=== PATIENT | male | born 1960 | race Caucasian/White ===

== ENCOUNTER 2017-12-27 11:17 | Outpatient (REF) | payer BC, SELFPAY ==
--- NOTE | 2017-12-27 10:45 | SKI_PTH ---
PATIENT: Sherman Garcias LOC: [facility] U#:[id number] AGE/SX: 57/M ROOM: RE12/27/[address]: Fernie Whalen : 1960 BED: DIS: 12/27/2017 SPEC #: [id number] RECD: 12/27/17 12:27 STATUS: JESENIA REQueenie #: [id number] LILLY: 12/27/17 10:[address]: Fernie Whalen DEPT: Surgical Specimen RECD BY: Kalyani Doyle Tissues: 1 - SKIN BIOPSY(SHAVE/PUNCH) Procedures: SKIN LEVEL 4 Comments: [id number]
== END 2017-12-27 11:37 ==
LOC: NCHCN 11:17
PROVIDERS: PCP Family Medicine; Visit Provider Family Medicine
DX: L82.1 Other seborrheic keratosis (principal)
CPT/HCPCS: 88305

== ENCOUNTER 2018-03-22 09:47 | Outpatient (CLI) | payer BC, SELFPAY ==
--- NOTE | 2018-03-22 09:39 | DI.RAD_ITS ---
SYMPTOMS/DIAGNOSIS: PAIN RIGHT THUMB: No acute fracture or dislocation is seen. Mild hypertrophic changes are seen at the first carpal metacarpal joint. No radiopaque foreign bodies are seen in the soft tissues. IMPRESSION: Mild degenerative changes seen at the first carpal metacarpal joint.
== END 2018-03-22 10:07 ==
PROVIDERS: PCP Family Medicine; Visit Provider Physician Assistant Surgical
DX: M79.644 Pain in right finger(s) (principal); M18.11 Unilateral primary osteoarthritis of first carpometacarpal joint, right hand
CPT/HCPCS: 73140

== ENCOUNTER 2018-10-16 08:53 | Outpatient (REF) | payer BC, SELFPAY ==
[2018-10-16 13:38] LABS: HCT 45.7 % (40.0-50.0); HGB 15.8 g/dL (13.5-17.5); Mean Corp. HGB Concentration 34.6 g/dL (32.0-36.0); Mean Corpuscular Hemoglobin 31.5 pg (27.0-33.0); Mean Platelet Volume 10.7 fL (8.0-11.0); Platelet Count 212 x1000/uL (130-400); RBC 5.02 m/cumm (4.50-6.00); RBC Distribution Width 13.3 % (11.8-14.1); White Blood Cell Count 8.11 k/cumm (4.4-10.8)
[2018-10-16 13:49] LABS: ALT 30 U/L (12-78); AST 18 U/L (15-37); Alkaline Phosphatase 70 U/L (46-116); BUN 17 mg/dL (7-18); Bilirubin, Total 0.7 mg/dL (0.2-1.0); CREATININE 1.06 mg/dL (0.70-1.30); Calcium 9.1 mg/dL (8.5-10.1); Chloride 107 mmol/L (98-107); Glucose 113 mg/dL (70-100); Potassium 4.3 mmol/L (3.5-5.1); Sodium 142 mmol/L (136-145); Total Protein 7.3 g/dL (6.4-8.2)
== END 2018-10-16 09:13 ==
LOC: NCHCN 08:53
PROVIDERS: PCP Family Medicine; Visit Provider Family Medicine
DX: I10 Essential (primary) hypertension (principal); R73.09 Other abnormal glucose; K76.0 Fatty (change of) liver, not elsewhere classified
CPT/HCPCS: 80053; 85027

== ENCOUNTER 2019-01-24 15:23 | Outpatient (CLI) | payer BC, SELFPAY ==
[2019-01-24 15:44] LABS: Abs Immature Grans 0.02 k/cumm (0.0-0.09); Absolute Basophil Count 0.04 k/cumm (0.0-0.2); Absolute Eosinophil Count 0.33 k/cumm (0.0-0.7); Absolute Lymphocyte Count 2.73 k/cumm (1.2-3.4); Absolute Monocyte Count 0.86 k/cumm (0.11-0.7); Absolute Neutrophil Count 4.29 k/cumm (1.2-6.7); Basophils % 0.5; HGB 15.8 g/dL (13.5-17.5); Immature Grans % 0.2; Mean Corp. HGB Concentration 34.3 g/dL (32.0-36.0); Mean Corpuscular Hemoglobin 31.3 pg (27.0-33.0); Mean Corpuscular Volume 91.3 fL (80-95); Monocytes % 10.4; Neutrophils % 51.9; Platelet Count 233 x1000/uL (130-400); RBC 5.04 m/cumm (4.50-6.00); RBC Distribution Width 12.9 % (11.8-14.1); White Blood Cell Count 8.27 k/cumm (4.4-10.8)
[2019-01-24 16:21] LABS: C-Reactive Protein 0.21 mg/dL (0.0-0.3)
[2019-01-24 16:46] LABS: ESR 9 mm/hr (1-20)
[2019-01-26 10:28] LABS: Rheumatoid Factor 9 IU/mL (<12.5)
[2019-01-26 11:01] LABS: Lyme Ab w Rflx to Lyme Confirm Negative
[2019-01-26 16:58] LABS: ANA Interpretation Negative (NEGAT)
== END 2019-01-24 15:43 ==
PROVIDERS: PCP Family Medicine; Visit Provider Orthopaedic Surgery
DX: M25.50 Pain in unspecified joint (principal); M18.11 Unilateral primary osteoarthritis of first carpometacarpal joint, right hand
CPT/HCPCS: 36415; 85652; 85025; 86038; 86140; 86431; 86618

== ENCOUNTER 2019-10-22 13:39 | Outpatient (REF) | payer BC, SELFPAY ==
[2019-10-25 08:24] LABS: SARS-CoV-2 RNA Undetected (Undetected)
== END 2019-10-22 13:59 ==
LOC: NCHCN 13:39
PROVIDERS: PCP Family Medicine; Visit Provider Nurse Practitioner Family
DX: Z20.828 Contact with and (suspected) exposure to other viral communicable diseases (principal)
CPT/HCPCS: U0003

== ENCOUNTER 2019-12-27 18:31 | Outpatient (REF) | payer BC, SELFPAY | END 2019-12-27 18:51 | LOC: NCHCN 18:31 | PROVIDERS: PCP Family Medicine; Visit Provider Family Medicine | DX: N39.0 Urinary tract infection, site not specified (principal) | CPT/HCPCS: 87077; 87086; 87186 ==

== ENCOUNTER 2020-01-02 09:32 | Outpatient (CLI) | payer BC, SELFPAY ==
--- NOTE | 2020-01-02 09:00 | DI.RAD_ITS ---
EXAM: XR SHOULDER LT COMPLETE 2+V CLINICAL HISTORY: pain. TECHNIQUE: 2D digital imaging was performed. COMPARISON: No exams were available for comparison FINDINGS: BONES: No acute fracture is present. No bony destructive lesion is seen. JOINTS: No dislocation present. Mild degenerative changes are seen at the acromioclavicular joint. T he glenohumeral joint appears unremarkable. SOFT TISSUE: Normal. IMPRESSION: Mild degenerative changes of the left AC joint. DATA REPOSITORY: RADIATION DOSE DELIVERED:
== END 2020-01-02 09:52 ==
PROVIDERS: PCP Family Medicine; Referring Provider Family Medicine; Visit Provider Orthopaedic Surgery
DX: M19.012 Primary osteoarthritis, left shoulder (principal)
CPT/HCPCS: 73030

== ENCOUNTER 2020-01-07 16:33 | Outpatient (REF) | payer BC, SELFPAY ==
[2020-01-07 19:28] LABS: HCT 46.9 % (40.0-50.0); MCH 30.8 pg (27.0-33.0); MCHC 34.1 % (32.0-36.0); MCV 90.2 fL (80-95); MPV 10.5 fL (8.0-11.0); Platelet Count 244 10^3/uL (130-400); RDW 12.3 % (11.8-14.1); RDW-SD 40.7 fL
[2020-01-07 20:13] LABS: ALT 44 U/L (16-63); AST 30 U/L (15-37); Albumin 4.2 g/dL (3.4-5.0); Alkaline Phosphatase 70 U/L (46-116); Anion Gap 11.4 mmol/L (3-11); BUN 19 mg/dL (7-18); Bilirubin, Total 0.5 mg/dL (0.2-1.0); CO2 23.6 mmol/L (21.0-32.0); CREATININE 1.05 mg/dL (0.70-1.30); Calcium 9.1 mg/dL (8.5-10.1); Chloride 103 mmol/L (98-107); Glucose 93 mg/dL (74-106); Potassium 4.1 mmol/L (3.5-5.1); Sodium 138 mmol/L (136-145); TSH (W/Ref FT4) 1.35 uIU/mL (0.36-3.74); Total Protein 7.5 g/dL (6.4-8.2); Vitamin B12 516 pg/mL (193-986)
== END 2020-01-07 16:53 ==
LOC: NCHCN 16:33
PROVIDERS: PCP Family Medicine; Visit Provider Family Medicine
DX: K76.0 Fatty (change of) liver, not elsewhere classified (principal); R41.3 Other amnesia
CPT/HCPCS: 80053; 85027; 82607; 84443

== ENCOUNTER 2020-01-14 00:39 | Outpatient (CLI) | payer BC, SELFPAY ==
--- NOTE | 2020-01-14 06:30 | DI.MRI_ITS ---
EXAM: MR UPPER JOINT LT WO CLINICAL HISTORY: LT SHOULDER PAIN, LT ROTATOR CUFF TEAR,M75.102,M25.512 TECHNIQUE: COMPARISON: CR XR SHOULDER LT COMPLETE 2+V from 01/02/2020 FINDINGS: MR examination of the shoulder was performed according to the usual protocol. There is a small shoulder joint effusion. There are areas of abnormal bony signal in the acromion and clavicle adjacent to the AC joint with mo derate hypertrophic changes and minimal cyst formation of the bones at the AC joint. Small subchondral cysts also noted in the greater tuberosity of the humerus.. There is apparent discontinuity of the anterior superior aspect of the glenoid labrum suggesting a te ar. There are associated areas of abnormal signal and apparent tearing in the rotator interval, whic h may involve both superior glenohumeral ligament and coracohumeral ligament. However the biceps ten don appears normally positioned with no evidence bicipital tendinosis or tear. Rotator cuff: Minimal linear intrasubstance partial thickness tearing of the distal subscapularis ten don noted. Moderate subscapularis tendinosis with abnormal signal and thickening of the tendon. No full thickness tear or retracted tear. Supraspinatus tendinosis, with thickened abnormal signal of mid to distal portion of the tendon, ques tion minimal partial thickness inferior cyst surface tearing at and near the humeral attachment. No full-thickness tear. No retracted tear. Infraspinatus and teres minor are unremarkable appearance with no significant tendinosis or tear. IMPRESSION: Apparent rotator interval tear as described above, there may be an associated anterior superior gleno id labral tear. Tendinosis and minimal partial thickness tearing of supraspinatus and subscapularis tendons as descri bed above. No full thickness tear or retracted tear. RADIATION DOSE DELIVERED: LINK-TO-SR Total DLP
== END 2020-01-14 00:59 ==
PROVIDERS: PCP Family Medicine; Visit Provider Orthopaedic Surgery
DX: M25.512 Pain in left shoulder (principal); M75.102 Unspecified rotator cuff tear or rupture of left shoulder, not specified as traumatic; M25.412 Effusion, left shoulder
CPT/HCPCS: 73221

== ENCOUNTER 2020-01-21 06:18 | Day surgery (SDC) | payer BC, SELFPAY ==
[2020-01-21 06:26] VITALS: BP 122/78; PULSE 73; RESP 16; TEMP 36.5; O2SAT 95
[2020-01-21] MEDS: Lactated Ringers 1,000 ML 80 ML IV ×2 (06:57→08:18)
[2020-01-21] MEDS: Normal Saline Flush 10 ML SYR IV (07:14)
--- NOTE | 2020-01-21 07:48 | W.PREOPHP ---
Date of service: 01/21/20 Time of Service: 07:48 Assessment and Plan Assessment and plan (1) Right carpal tunnel syndrome: Status: Acute Assessment and plan: endoscopic carpal tunnel release on the right under IV regional anesthesia. History of Present Illness History of Present Illness Chief Complaint: Right carpal Tunnel syndrome Narrative: Patient with (+) nerve conduction studies for right carpal tunnel syndrome. He was seen by Dr. Mason and they have decided to proceed with endoscopic carpal tunnel release on right. Review of Systems Constitutional Constitutional: Denies chills, Denies fever(s), Denies frequent falls, Denies night sweats and Denies weight loss ENT Ears, Nose, Mouth, and Throat: Denies abnormal hearing, Denies dysphagia, Denies hearing loss, Denies nasal congestion and Denies neck pain Cardiovascular Cardiovascular: Denies chest pain at rest, Denies chest pain with activity, Denies syncope, Denies dyspnea, Denies dyspnea on exertion and Denies paroxysmal nocturnal dyspnea Respiratory Respiratory: Denies cough, Denies dyspnea and Denies dyspnea on exertion Gastrointestinal Gastrointestinal: Denies dysphagia Musculoskeletal Musculoskeletal: Denies neck pain Neurologic Neurologic: Denies abnormal hearing, Denies syncope and Denies frequent falls [facility] Medical History Anxiety and depression Arthropathy of lumbar facet joint Bilateral primary osteoarthritis of hip Cubital tunnel syndrome, bilateral Erectile dysfunction Fatty liver Gastritis History of nephrolithiasis Hyperlipidemia Hypertension Lower urinary tract symptoms Lumbar spinal stenosis ELINOR (obstructive sleep apnea) Osteoarthritis of right thumb Prediabetes Right carpal tunnel syndrome Shoulder pain Tinea cruris Tinnitus TMJ (dislocation of temporomandibular joint) Ulnar neuropathy Voice disturbance Surgical History Deformity, clavicle clavicle resection H/O inguinal hernia repair H/O lithotripsy x2 1979 and 2009 History of nasal surgery septoplasty and turbinate repair Social History Smoking/Tobacco Use Status: Former Tobacco Use Alcohol Intake: current Alcohol Intake frequency: 0-2 drinks per day Alcohol type: wine Drug use: Never Substance use type: does not use Household members: spouse Number of Children: 1 Current gender identity: male What is your relationship status?: Panel score (0-1 are the most socially isolated patients): 1 What type of physical activity do you participate in: walking, regular exercise and additional Details: Shoulder PT exercises Do you feel safe at home: Yes Do you feel safe in your relationship?: Yes Meds Home Medications and Allergies Home Medications Medication Instructions Recorded Confirmed Type sildenafil 25 mg tablet 25 mg PO DAILY PRN 03/22/18 01/21/20 History atorvastatin 40 mg PO HS 03/19/19 01/21/20 History ketoconazole 1 applic TOPICAL HS 03/19/19 01/18/20 History lisinopril 20 mg PO DAILY 03/19/19 01/21/20 History aspirin 81 mg tablet,delayed 81 mg PO Q OTHER DAY tab 03/20/19 01/21/20 History release meloxicam 15 mg tablet 15 mg PO DAILY PRN 30 Days #30 tab 03/20/19 01/21/20 Rx Allergies Allergy/AdvReac Type Severity Reaction Status Date / Time Sulfa (Sulfonamide Allergy Intermediate Hives Verified 01/21/20 06:29 Antibiotics) Exam Const General: cooperative, healthy appearing and comfortable Orientation: alert and oriented x3 Resp Effort & Inspection: normal respiratory effort, no audible wheezes and no cough Auscultation: clear to auscultation bilaterally Cardio Jugular venous pressure: no JVD Rate: regular rate Rhythm: regular rhythm Heart Sounds: S1 normal, S2 normal and no murmurs Results Last Vital Signs Temp 36.5 C 01/21/20 06:26 Pulse 73 01/21/20 06:26 Resp 16 01/21/20 06:26 BP 122/78 01/21/20 06:26 Pulse Ox 95 01/21/20 06:26
--- NOTE | 2020-01-21 08:33 | W.PM.DSUDISC ---
Discharge Plan Disposition Patient Disposition: HOME Condition: Good Discharge Details Reason For Visit: R ECTR Attending Provider: Rick Mason Primary Care Provider: Fernie Whalen Home Meds and New Rx's Prescriptions: New hydrocodone-acetaminophen 5-325 mg tablet 1 tab PO Q6H PRN (Reason: pain) Qty: 7 RF: 0 No Action meloxicam 15 mg tablet 15 mg PO DAILY PRN (Reason: joint pain) 30 Days Qty: 30 RF: 5 sildenafil [Viagra] 25 mg tablet 25 mg PO DAILY PRNRF: 0 atorvastatin 40 mg Tablet 40 mg PO HS RF: 0 lisinopril 20 mg Tablet 20 mg PO DAILY RF: 0 ketoconazole 2 % Cream 1 applic TOPICAL HS RF: 0 aspirin [Aspir-Low] 81 mg tablet,delayed release (DR/EC) 81 mg PO Q OTHER DAY RF: 0 Discharge Instructions Additional Instructions: Elevate R hand above heart level as much as possible overnite tonite. Wiggle fingers R hand 10 times/hour when awake to prevent swelling. Remove splint and dressings and begin to more R wrist after 48 hours. May shower or bathe and get incision wet after you remove the dressings. Leave incision uncovered when it is dry and sealed. May use R hand as much as your discomfort allows. Follow up with in 2 weeks. Take tylenol for mild pain. Take hydrocodone for breakthru pain, if needed. Referrals: Rick Mason MD [ [facility] STAFF PHYSICIAN] - (f/u in 2 weeks.) Equipment/Supplies: Splint Activity:: Activity as Tolerated Remove Dressings/Wound Care:: 48 hours Shower/Bathe:: 48 hours Diet:: As Tolerated Discharge Orders Discharge Orders: Discharge Order (Routine); Ordered 01/21/20 Ordered By: Rick Mason DS: Diagnosis Discharge Diagnosis (1) Right carpal tunnel syndrome: Status: Acute
[2020-01-21 09:04] VITALS: BP 141/94; PULSE 63; RESP 16; TEMP 36.5; O2SAT 96
--- NOTE | 2020-01-22 17:34 | W.PM.OP ---
Date of service: 01/21/20 Time of Service: 08:00 Operative Note Operative Note DATE OF PROCEDURE: 01/21/20 PRE-OP DIAGNOSIS: Right carpal tunnel syndrome POST-OP DIAGNOSIS: same PROCEDURE: Endoscopic carpal tunnel release right SURGEON: Rick Mason ANESTHESIA: regional PATHOLOGY: none sent TOURNIQUET TIME: 22 COMPLICATIONS: None Patient was transported to: PACU Patient's condition: stable Indications: This 59-year-old white male with longstanding carpal tunnel syndrome on the right. Diagnosis was confirmed with nerve conduction studies. Carpal tunnel release was recommended to alleviate his symptoms on a permanent basis. Patient wished to undergo the endoscopic technique of carpal tunnel release. Risk and complication of the procedure were discussed with the patient preop. Procedure Description: Patient was taken the operating room on 01/21/20. He was placed supine on the operating table and an IV regional anesthetic was administered to the right upper extremity. Once good anesthesia was obtained the right hand wrist and forearm were prepped and draped free in the usual sterile fashion. Incision was made in line with the proximal flexion crease of the right wrist beginning of the flexor carpi radialis and extending to the flexor carpi ulnaris tendon. The incision was carried down through the skin and subcutaneous tissue to the fascia. Subcutaneous veins were cauterized. A distally based fascial flap was fashioned to gain access to the carpal canal. Patient was noted to have an abnormal distal muscle belly extending to the proximal end of the carpal canal. Synovial reflector was then used to reflect all soft tissue from the undersurface of the volar carpal ligament. A series of obturators were inserted to gain room for the endoscope. TheAgee endoscope blade device was then inserted into the carpal canal and advanced until the distal edge of the volar carpal ligament was clearly visualized. Care was taken to position the endoscope against the hook of the hamate. Trigger was depressed elevating the the blade. The blade was then brought out proximally through the incision transecting the volar carpal ligament. Endoscope was replaced in the carpal canal and the median nerve was visualized falling into the gap where the volar carpal ligament was transected. The wounds irrigated with saline solution. The wound margins were infiltrated 0.5% Marcaine with epinephrine solution. A median nerve block was performed 0.5% Marcaine with epinephrine solution. Skin edges were approximated with 2 horizontal mattress sutures of 4-0 nylon suture material. Wounds dressed with Xeroform gauze sterile gauze 4 x 4's were applied wrapped with a 4 inch Kerlix and then wrapped with a 3 inch Caesar bandage. A commercial cock-up wrist plate was applied. Patient is IV regional anesthesia was reversed complications and he was discharged to the recovery room in good condition. Patient was discharged home from day surgery unit when fully recovered from his IV regional anesthesia. He was given instructions to elevate his right hand above heart level as much as possible overnight. He is encouraged to move his fingers 10 times an hour while awake to prevent swelling. He is to keep his dressings and splint dry and intact for 48 hours. After 48 hours he can remove his dressings and splint and begin to move his right wrist. After removing his dressings he may shower and get incision wet. He can leave his incision uncovered when is dry and sealed. He may use his right hand is much as discomfort allows. He will take Tylenol for mild pain. He is given a prescription of hydrocodone with APAP 08/11/2024, 1 every 6 hours as needed for breakthrough pain. He will follow-up with Dr. Mason in 2 weeks.
== END 2020-01-21 09:30 | disposition home or self-care (01) ==
PROVIDERS: PCP Family Medicine; Visit Provider Orthopaedic Surgery
PROC: 01N54ZZ Release Median Nerve, Percutaneous Endoscopic Approach (ICD-10-PCS; CPT 29848; principal; 2020-01-21 07:30)
DX: G56.01 Carpal tunnel syndrome, right upper limb (principal); I10 Essential (primary) hypertension; G47.33 Obstructive sleep apnea (adult) (pediatric); E78.5 Hyperlipidemia, unspecified; R73.03 Prediabetes
CPT/HCPCS: 29848; 99222; J1885

== ENCOUNTER 2020-07-29 02:17 | Outpatient (CLI) | payer BC, SELFPAY ==
[2020-07-29 11:26] LABS: Source Nasal/Nares
[2020-07-29 17:22] LABS: COVID-19 PCR Negative (Negative)
== END 2020-07-29 02:18 | disposition home or self-care (01) ==
LOC: LBO 02:17
PROVIDERS: PCP Family Medicine; Visit Provider Student in an Organized Health Care Education/Training Program
DX: Z20.822 Contact with and (suspected) exposure to COVID-19 (principal)
CPT/HCPCS: 87635

== ENCOUNTER 2020-07-31 08:03 | Day surgery (SDC) | payer BC, SELFPAY ==
[2020-07-31] VITALS (10 sets, daily range): BP systolic 90–135; BP diastolic 52–83; PULSE 61–83; RESP 12–21; TEMP 36.2–37; O2SAT 91–97
[2020-07-31] MEDS: Lactated Ringers 1,000 ML 100 ML IV ×2 (08:50→13:15)
[2020-07-31] MEDS: ceFAZolin 3,000 MG in Normal Saline 100 ML 200 MG IVPB (11:24)
[2020-07-31] MEDS: EPINEPHrine 30 MG/30 ML VIAL (13:00)
--- NOTE | 2020-07-31 13:28 | PDOC.DSDIS_ITS ---
Discharge Plan Disposition Patient Disposition: HOME Condition: Stable Discharge Details Reason For Visit: Left shoulder surgery Attending Provider: Vic Baum Primary Care Provider: Fernie Whalen Home Meds and New Rx's Prescriptions: New naproxen 250 mg tablet 250 - 500 mg PO BID PRN (Reason: Moderate pain or swelling) Qty: 60 RF: 0 aspirin 81 mg tablet,delayed release (DR/EC) 81 mg PO DAILY 14 Days Qty: 14 RF: 0 oxycodone 5 mg tablet 5 - 10 mg PO Q4H PRN (Reason: moderate to severe pain) Qty: 22 RF: 0 Continued sildenafil [Viagra] 25 mg tablet 25 mg PO DAILY PRNRF: 0 atorvastatin 40 mg Tablet 40 mg PO HS RF: 0 lisinopril 20 mg Tablet 20 mg PO DAILY RF: 0 ketoconazole 2 % Cream 1 applic TOPICAL HS RF: 0 aspirin [Aspir-Low] 81 mg tablet,delayed release (DR/EC) 81 mg PO Q OTHER DAY RF: 0 milk thistle 500 mg Capsule 1,000 mg PO DAILY RF: 0 glucosamine sulfate [Glucosamine] 500 mg Tablet 500 mg PO DAILY RF: 0 Discontinued meloxicam 15 mg tablet 15 mg PO DAILY PRN (Reason: joint pain) 30 Days Qty: 30 RF: 5 Discharge Instructions Additional Instructions: Surgery: Shoulder arthroscopy with extensive debridement, biceps tenodesis, and subacromial decompression. Activity: You should gradually increase range of motion motion and use of your shoulder. Please perform daily stretching exercises. You may use your shoulder for all regular activities. Avoid heavy lifting, reaching overhead, and lifting away from body for approximately 6 to 8 weeks. You may use the sling whenever you are out of the house for a few weeks. You do not need to use the sling as soon as comfortable. A physical therapy prescription will be sent electronically to start in about 2 weeks. Prescriptions: Aspirin 81 mg take 1 daily to prevent a blood clot for 2 weeks Naproxen 250 mg take 1-2 every 12 hours with a meal as needed for moderate pain Oxycodone 5 mg take 1-2 every 4-6 hours as needed for severe pain You may use toeh-[id number] Tylenol (acetaminophen) as needed for mild pain. These pain medications may be taken all at once or in different combinations as needed. Also, recommend Colace (docusate) as a stool softener as surgery and pain medici ne cause constipation. Dressings: Remove shoulder bandage after 3 days. Leave the sticky Steri-Strips in place until they fall off or remove them after you shower. Cover the incisions with Band-Aids or leave them open to air. You may shower after 5 days. Follow-up: 10-[address] Baum You may take off the leg compression stockings this evening at home. You may also leave them on a few days longer if you have a history of leg swelling or edema. Let us know right away if you develop any redness, drainage, fevers, chest pain, or trouble breathing. Do not drink alcohol or drive for at least 24 hours after anesthesia. Please call the office during business hours with any questions or concerns. Referrals: Vic Baum MD [ [facility] STAFF PHYSICIAN] - Discharge Orders Discharge Orders: Discharge Order (Routine); Ordered 07/31/20 Ordered By: Vic Baum DS: Diagnosis Discharge Diagnosis (1) SLAP lesion of left shoulder: Status: Acute (2) Impingement syndrome of left shoulder: Status: Acute (3) Left rotator cuff tear: Status: Acute (4) Bursitis of left shoulder: Status: Acute
--- NOTE | 2020-07-31 17:36 | ROE_ITS ---
Date of service: 07/31/20 Time of Service: 17:24 Operative Note Operative Note DATE OF PROCEDURE: 07/31/20 PRE-OP DIAGNOSIS: Left: 1. Rotator cuff tear 2. SLAP tear 3. Bursitis 4. Impingement POST-OP DIAGNOSIS: same PROCEDURE: Left: 1. Arthroscopic biceps tenodesis, CPT# 24599. This involved arthroscopically suturing and reattaching the long head of the biceps tendon to the proximal humerus at the superior margin of the bicipital groove with a screw at the correct tension. 2. Extensive debridement, CPT# 16402. This involved using arthroscopic hand instruments, power instruments, and radiofrequency instruments to release to release the long head of the biceps tendon and debride areas of labral tearing, synovitis, and partial articular sided supraspinatus tearing working within the glenohumeral joint anteriorly, superiorly and posteriorly. 3. Subacromial decompression with partial acromioplasty, CPT# 67852. This involved using arthroscopic power instruments and a radiofrequency wand to complete a bursectomy and remove bone spurs on the undersurface of the acromion. The commissary assistant was medically required in order to help assist in techniques above, which require positioning the arm, holding the arthroscope, and manipulating multiple instruments and sutures at the same time. This cannot be done without the help of an experienced commissary assistant. SURGEON: Vic Baum [employer] MAKER HAND: Ernestine Richardson ANESTHESIA TYPE: General LMA/ETT Refer to Anesthesia Record ESTIMATED BLOOD LOSS: 15 PATHOLOGY: none sent COMPLICATIONS: None Patient was transported to: PACU Patient's condition: stable Implants: Arthrex: 4.75mm SwiveLocks x 1 Indications: The patient was diagnosed with the above conditions and appropriately indicated for surgical intervention. Please see complete medical record for details. Findings: Exam under anesthesia: Full, symmetrical range of motion. No instability. Glenohumeral joint: Significant anterior and superior synovitis. SLAP tear involving the biceps tendon anchor, anterior labral small nondisplaced tear, posterior labral fraying. Small upper margin subscapularis longitudinal tear with no displacement and no involvement of the lesser tuberosity footprint. Significant articular sided supraspinatus fraying and partial tearing starting anteriorly at the bicipital groove with hemorrhagic and profound scar tissue about the rotator interval. Articular sided supraspinatus tearing involves up to 30% of the footprint most anteriorly and tapering off to a likely intact posterior supraspinatus footprint. Intact infraspinatus. Subacromial space: Significant bursitis. Moderate undersurface acromial bone spurring. Minimal distal clavicle hypertrophy or underside impingement. Intact bursal rotator cuff. Procedure Description: In the operating room, general anesthesia was induced. Bilateral shoulders were examined. The patient was positioned in the beachchair position. All bony prominences were well-padded. Preoperative antibiotics were administered. The shoulder was prepped and draped in the usual sterile fashion. The correct patient, procedure, and side of the procedure were all verified prior to incision. Starting through the posterior portal a standard complete diagnostic arthroscopy was performed of the glenohumeral joint including inspection of the long head of the biceps, anterior and superior labrum, subscapularis tendon, supraspinatus and infraspinatus tendons, and axillary recess. The glenoid and humeral head cartilage as well as the posterior labrum were inspected from an anterior viewing portal. Significant findings and extensive debridement interventions noted above. Owing to the SLAP tear and injury to the rotator interval including the anterior supraspinatus with an otherwise intact biceps tendon, the decision was made to proceed with arthroscopic biceps tenodesis. A rigid cannula was inserted anteriorly. An all-arthroscopic suprapectoral biceps tenodesis was performed th rough an anterior portal using a Loop N Tack method with a SutureTape FiberLink cinched around and through the tendon. The biceps was tenotomized from the labrum and fixated with a suture anchor at the superior margin of the bicipital groove to a swivel lock anchor at the correct tension. Starting through the posterior portal, the arthroscope was directed into the subacromial space. A lateral 50 yard line lateral portal was created. A combination of power instruments and a radiofrequency ablator were used to debride bursitis anteriorly, posteriorly, and laterally as well as expose and smooth bone spurring on the undersurface of the acromion. The coracoacromial ligament was partially released. The bursectomy was completed viewing laterally and working from posteriorly and the rotator cuff was thoroughly inspected with findings noted above. The shoulder was drained of arthroscopic fluid. All portal sites were copiously irrigated. These incisions were closed using 3-0 Monocryl in a buried fashion, covered with Mastisol, Steri-Strips, Xeroform, dry gauze, and ABDs. The dressings were covered and secured with Medipore tape. The operative extremity was placed into a sling for immobilization. The patient awoke from anesthesia without complication and was transferred to the recovery room in a stable condition.
--- NOTE | 2020-08-06 13:20 | PDOC.ANES ---
Anesthesia Note Report Anesthesia Note: Mr Garcias was contacted today to via phone to discuss his ongoing concerns with lightheadedness and feeling off as described by him. Through inquiry the patient describes full return of motor and sensory of his upper extremity where the interscalene block was placed. The pt describes lightheadedness where he presented to the ED for evaluation and was given IV fluids and discharged. He was instructed to consult with his primary care is he continues to just not feel right. He did not describe any pain since the block has worn off. Lastly if he had any additional concerns regarding his anesthetic he was told to call back.
== END 2020-07-31 17:10 | disposition home or self-care (01) ==
PROVIDERS: PCP Family Medicine; Visit Provider Student in an Organized Health Care Education/Training Program
PROC: (CPT 29827; principal; 2020-07-31 09:30)
PROC: (CPT 23430; 2020-07-31 09:30)
DX: S43.432A Superior glenoid labrum lesion of left shoulder, initial encounter (principal); M75.42 Impingement syndrome of left shoulder; M75.52 Bursitis of left shoulder; M65.812 Other synovitis and tenosynovitis, left shoulder; G89.18 Other acute postprocedural pain
CPT/HCPCS: 29828; 29823; 29826; 76942; J0690; J1100; J1885; J2001; J2370; J2405; J2704

== ENCOUNTER 2020-08-04 09:08 | Emergency (ER) | payer BC, SELFPAY ==
[2020-08-04] VITALS (30 sets, daily range): BP systolic 124–174; BP diastolic 63–100; PULSE 52–66; RESP 12–21; TEMP 36.4–36.5; O2SAT 94–98
--- NOTE | 2020-08-04 09:00 | RT.EKG_ITS ---
APPROVED REPORT Exam: Resting ECG Patient Location: E HR:56 bpm ECG Measurements Heart Rate 56 AXIS SC 150 P 15 QRSd 108 QRS 9 QT 403 T 14 QTc 391 Conclusion Sinus bradycardia...rate< 60 I have reviewed and interpreted ECG and agree with software generated interpretation. no STEMI, non-diagnostic EKG
--- NOTE | 2020-08-04 09:37 | ED.GENADUL_ITS ---
Discharge Plan Disposition Patient Disposition: HOME Condition: Good Discharge Details Clinical Impression: Abdominal pain, epigastric Primary Care Provider: Fernie Whalen ED Provider: Kalyani Benton Home Meds and New Rx's Prescriptions: New ondansetron HCl [Zofran] 4 mg tablet 4 mg PO Q8H Qty: 10 RF: 0 Continued sildenafil [Viagra] 25 mg tablet 25 mg PO DAILY PRNRF: 0 atorvastatin 40 mg Tablet 40 mg PO HS RF: 0 lisinopril 20 mg Tablet 20 mg PO DAILY RF: 0 ketoconazole 2 % Cream 1 applic TOPICAL HS RF: 0 ondansetron HCl [Zofran] 4 mg tablet 4 mg PO Q6H PRN (Reason: nausea and vomiting) Qty: 8 RF: 0 aspirin [Aspir-Low] 81 mg tablet,delayed release (DR/EC) 81 mg PO Q OTHER DAY RF: 0 milk thistle 500 mg Capsule 1,000 mg PO DAILY RF: 0 glucosamine sulfate [Glucosamine] 500 mg Tablet 500 mg PO DAILY RF: 0 naproxen 250 mg tablet 250 - 500 mg PO BID PRN (Reason: Moderate pain or swelling) Qty: 60 RF: 0 aspirin 81 mg tablet,delayed release (DR/EC) 81 mg PO DAILY 14 Days Qty: 14 RF: 0 oxycodone 5 mg tablet 5 - 10 mg PO Q4H PRN (Reason: moderate to severe pain) Qty: 22 RF: 0 Discharge Instructions Additional Instructions: Take Pepcid or Maalox daily Take Tylenol 650 mg instead of naproxen as this may be irritating her stomach Increase your hydration, as prescribed Zofran as needed for nausea Please return with worsening pain, fever, or with any new or progressing symptoms Please follow-up with your primary care physician in 24 to 48 hours for reevaluation Medical Decision Making Patient is alert, oriented, ambulatory, no orthostasis Feeling mild symptomatic improvement, epigastric pain pain completely resolved after Mylanta Patient with mildly bradycardic at 55, he is ambulatory with steady gait with this rhythm and it is fine on the monitor and EKG, he has a heart rate that is consistent with his prior evaluation I do not suspect his bradycardia the cause of his symptoms currently He is feeling improvement in request discharge home He has 2 - troponins and to negative EKGs which is reassuring and none 6-hour period of time He does appear to be dehydrated as his BUN is elevated on evaluation He received 1 L of normal saline and several glasses of juice which she tolerated without incident I did consider pulmonary embolism, however patient does not have tachypnea, hypoxia, or tachycardia, making this diagnosis less likely Patient discharged home in stable condition with stable vitals, ambulatory with steady gait Differential Diagnosis Differential Diagnosis: Pulmonary embolism, dehydration, bradycardia, GERD, angina Medical Records Medical records reviewed: Yes I reviewed the patient's medical records. Lab Data Lab results reviewed: Yes I reviewed the patient's lab results. HPI This 60-year-old gentleman with past medical history of polyarthralgia and recent left shoulder surgery for debridement and SLAP lesion repair on 31 July presents with reports of nausea, burning to his epigastrium which started this morning when he woke up. He denies any chest pain or shortness of breath. He denies any dizziness or weakness. He denies any fever or chills. He has been taking naproxen he is taken approximately 4 tabs since and denies any opiate analgesia. Denies urinary symptoms, denies blood in stool. Denies radiation of pain to his back. He denies any calf pain or swelling. He denies prior history of coagulopathy. General Date/Time Provider Initiated Documentation: 08/04/20 09:10 . Related Data Home Medications Medication Instructions Recorded Confirmed sildenafil 25 mg tablet 25 mg PO DAILY PRN 03/22/18 08/04/20 atorvastatin 40 mg PO HS 03/19/19 08/04/20 ketoconazole 1 applic TOPICAL HS 03/19/19 08/04/20 lisinopril 20 mg PO DAILY 03/19/19 08/04/20 aspirin 81 mg tablet,delayed 81 mg PO Q OTHER DAY tab 03/20/19 07/31/20 release glucosamine sulfate [Glucosamine] 500 mg PO DAILY 07/29/20 08/04/20 milk thistle 1,000 mg PO DAILY 07/29/20 08/04/20 aspirin 81 mg PO DAILY 14 Days #14 tab 07/31/20 08/04/20 naproxen 250 - 500 mg PO BID PRN #60 tab 07/31/20 08/04/20 oxycodone 5 - 10 mg PO Q4H PRN #22 tab 07/31/20 ondansetron HCl 4 mg tablet 4 mg PO Q6H PRN #8 tab 08/04/20 ondansetron HCl [Zofran] 4 mg PO Q8H #10 tab 08/04/20 Previous Rx's Medication Instructions Recorded aspirin 81 mg PO DAILY 14 Days #14 tab 07/31/20 naproxen 250 - 500 mg PO BID PRN #60 tab 07/31/20 oxycodone 5 - 10 mg PO Q4H PRN #22 tab 07/31/20 ondansetron HCl 4 mg tablet 4 mg PO Q6H PRN #8 tab 08/04/20 ondansetron HCl [Zofran] 4 mg PO Q8H #10 tab 08/04/20 Allergies Allergy/AdvReac Type Severity Reaction Status Date / Time Sulfa (Sulfonamide Allergy Intermediate Hives Verified 07/31/20 08:22 Antibiotics) General Stated Complaint: Nausea/Vomit/Diar NABOR: 3 Review of Systems Narrative: Review of systems obtained x7 aside from where indicated in HPI [facility] [place] Medical History (Updated 08/04/20 @ 13:03 by ALEKSANDRA Le) Anxiety and depression Arthropathy of lumbar facet joint Bilateral primary osteoarthritis of hip Cubital tunnel syndrome, bilateral Erectile dysfunction Fatty liver Gastritis History of nephrolithiasis Hyperlipidemia Hypertension Lower urinary tract symptoms Lumbar spinal stenosis ELINOR (obstructive sleep apnea) Osteoarthritis of right thumb Prediabetes Right carpal tunnel syndrome Shoulder pain Tinea cruris Tinnitus TMJ (dislocation of temporomandibular joint) Ulnar neuropathy Voice disturbance Surgical History Deformity, clavicle clavicle resection H/O inguinal hernia repair H/O lithotripsy x2 1979 and 2009 History of nasal surgery septoplasty and turbinate repair Social History Smoking/Tobacco Use Status: Former Tobacco Use Quit Date: 04/11/13 Smoking risk assessment performed?: Yes Alcohol Intake: current Alcohol Intake frequency: 0-2 drinks per day Alcohol type: wine Drug use: Never Substance use type: does not use Household members: spouse Number of Children: 1 Current gender identity: male What is your relationship status?: Panel score (0-1 are the most socially isolated patients): 1 What type of physical activity do you participate in: walking, regular exercise and additional Details: Shoulder PT exercises Do you feel safe at home: Yes Do you feel safe in your relationship?: Yes Exam Const Orientation: alert and oriented x3 Chest Chest: normal inspection of the chest Resp Effort & Inspection: normal respiratory effort Auscultation: clear to auscultation bilaterally Cardio Rate: regular rate Rhythm: regular rhythm GI Inspection: normal to inspection Other: No abdominal bruit or pulsatile mass, no CVA tenderness, no reproducible intra-abdominal tenderness Skin General skin exam: no rashes or lesions noted Neuro General: patient alert and patient oriented x3 Extrem Other: No calf tenderness or swelling appreciated on exam Course Vital Signs Vital signs: Vital Signs Temperature 36.5 C 08/04/20 09:11 Pulse 65 08/04/20 09:11 Respiratory Rate 16 08/04/20 09:11 Blood Pressure 174/87 H 08/04/20 09:11 Pulse Oximetry 98 08/04/20 09:11 Temperature 36.5 C 08/04/20 09:11 Temperature Source Skin 08/04/20 09:11 Pulse 65 08/04/20 09:11 Respiratory Rate 16 08/04/20 09:11 Respiratory Effort Non-Labored 08/04/20 09:19 Blood Pressure 174/87 H 08/04/20 09:11 Blood Pressure Position Sitting 08/04/20 09:11 Pulse Oximetry 98 08/04/20 09:11 Oxygen Delivery Method Room Air 08/04/20 09:11 Oxygen Flow Rate 0 08/04/20 09:11 Pain Level 7 08/04/20 09:11
[2020-08-04] MEDS: Normal Saline 500 ML IV (09:42)
[2020-08-04] MEDS: Ondansetron 4 MG/2 ML VIAL IVP (09:43)
[2020-08-04] MEDS: Mylanta Suspension 30 ML CUP PO (09:43)
[2020-08-04 09:50] LABS: Abs Immature Grans 0.05 10^3/uL (0.0-0.06); Absolute Basophil Count 0.07 10^3/uL (0.0-0.2); Absolute Eosinophil Count 0.36 10^3/uL (0.0-0.7); Absolute Lymphocyte Count 2.17 10^3/uL (1.2-3.4); Absolute Monocyte Count 0.76 10^3/uL (0.1-0.8); Absolute Neutrophil Count 5.34 10^3/uL (1.2-6.7); Basophils % 0.8; Eosinophils % 4.1; HCT 45.6 % (40.0-50.0); Immature Grans % 0.6; Lymphocytes % 24.8; MCH 32.1 pg (27.0-33.0); MCHC 35.1 % (32.0-36.0); MCV 91.6 fL (80-95); MPV 10.5 fL (8.0-11.0); Monocytes % 8.7; Nucleated RBC 0 %; Platelet Count 210 10^3/uL (130-400); RBC 4.98 10^6/uL (4.36-5.78); RDW 12.6 % (11.8-14.1); RDW-SD 42.6 fL; WBC 8.75 10^3/uL (4.4-10.8)
[2020-08-04 10:09] LABS: ALT 34 U/L (16-63); AST 22 U/L (15-37); Albumin 3.9 g/dL (3.4-5.0); Alkaline Phosphatase 73 U/L (46-116); BUN 23 mg/dL (7-18); Bilirubin, Total 1.1 mg/dL (0.2-1.0); CREATININE 1.1 mg/dL (0.70-1.30); Calcium 8.8 mg/dL (8.5-10.1); Chloride 106 mmol/L (98-107); Glucose 114 mg/dL (74-106); Lipase 158 U/L (73-393); Potassium 3.9 mmol/L (3.5-5.1); Sodium 141 mmol/L (136-145); Total Protein 7.3 g/dL (6.4-8.2); Troponin I < 0.05 ng/mL (<0.06)
--- NOTE | 2020-08-04 10:39 | DI.RAD_ITS ---
EXAM: XR CHEST 2V PA LATERAL CLINICAL HISTORY: epigastric. TECHNIQUE: 2D digital imaging was performed. COMPARISON: No exams were available for comparison FINDINGS: Heart size is normal. The mediastinum is not widened. Lungs are clear. No infiltrates nor pleural effusions. Is elevation left hemidiaphragm noted IMPRESSION: No acute pulmonary findings.Elevated left hemidiaphragm. DATA REPOSITORY: RADIATION DOSE DELIVERED:
--- NOTE | 2020-08-04 12:15 | RT.EKG_ITS ---
APPROVED REPORT Exam: Resting ECG Patient Location: E HR:55 bpm ECG Measurements Heart Rate 55 AXIS OK 154 P 15 QRSd 103 QRS 25 QT 420 T 32 QTc 400 Conclusion Sinus bradycardia...rate< 60
[2020-08-04 13:02] LABS: Troponin I < 0.05 ng/mL (<0.06)
--- NOTE | 2020-08-05 14:24 | PDOC.ANES ---
Date of service: 08/05/20 Time of Service: 14:25 Anesthesia Note Report Anesthesia Note: Call was received from the orthopedic office related to follow-up phone call with patient today after their visit to the ER yesterday. ER note reviewed. Tried to reach patient via phone call, no answer. Will attempt to reach patient again.
== END 2020-08-04 13:41 | disposition home or self-care (01) ==
PROVIDERS: Emergency Provider Physician Assistant; PCP Family Medicine
DX: R10.13 Epigastric pain (principal); E86.0 Dehydration
CPT/HCPCS: 80053; 83690; 93005; 96361; 96374; 99284; 71046; 83735; 84484; 85025; 93010; 99283; J2405

== ENCOUNTER 2020-09-18 09:49 | Outpatient (REF) | payer BC, SELFPAY ==
[2020-09-18 13:49] LABS: ALT 31 U/L (16-63); AST 27 U/L (15-37); Alkaline Phosphatase 75 U/L (46-116); Bilirubin, Direct 0.2 mg/dL (0.0-0.2); Bilirubin, Total 0.7 mg/dL (0.2-1.0); Total Protein 7.2 g/dL (6.4-8.2)
== END 2020-09-18 09:50 | disposition home or self-care (01) ==
LOC: LBN 09:49
PROVIDERS: PCP Family Medicine; Visit Provider Family Medicine
DX: R17 Unspecified jaundice (principal); E80.6 Other disorders of bilirubin metabolism
CPT/HCPCS: 80076

== ENCOUNTER 2020-10-24 11:39 | Outpatient (REF) | payer BC, SELFPAY ==
[2020-10-28 14:55] LABS: Helicobacter pylori Ag, Feces Negative (Negative)
== END 2020-10-24 11:40 | disposition home or self-care (01) ==
LOC: LBN 11:39
PROVIDERS: PCP Family Medicine; Visit Provider Family Medicine
DX: K30 Functional dyspepsia (principal)
CPT/HCPCS: 87338

== ENCOUNTER 2020-10-31 19:13 | Outpatient (REF) | payer BC, SELFPAY | END 2020-10-31 19:14 | disposition home or self-care (01) | LOC: NCHCN 19:13 | PROVIDERS: PCP Family Medicine; Visit Provider Nurse Practitioner Family | DX: R39.9 Unspecified symptoms and signs involving the genitourinary system (principal) | CPT/HCPCS: 87077; 87086; 87186 ==

== ENCOUNTER 2021-03-16 14:40 | Outpatient (CLI) | payer BC, SELFPAY ==
--- NOTE | 2021-04-06 09:26 | W.CARDEVENT ---
Date of service: 04/06/21 Time of Service: 09:26 Cardiac Event Recorder Referring Provider:: Fernie Whalen Indications:: Palpitations Cardiac Event Note: This is a 14-day cardiac event monitor ordered for palpitations Predominant rhythm was sinus. Average heart rate was 79, minimum was 53 maximum 143 There were occasional ventricular ectopic beats There were rare to occasional atrial premature beats There was no atrial fibrillation, no high-grade AV block, no pauses greater than 3 seconds Patient symptoms corresponded to atrial and ventricular ectopic beats
== END 2021-03-16 14:41 | disposition home or self-care (01) ==
LOC: RT 14:44
PROVIDERS: PCP Family Medicine; Visit Provider Family Medicine
DX: R00.2 Palpitations (principal); I10 Essential (primary) hypertension; R00.0 Tachycardia, unspecified
CPT/HCPCS: 93246

== ENCOUNTER 2022-02-02 08:55 | Outpatient (CLI) | payer BC, SELFPAY ==
--- NOTE | 2022-02-02 08:30 | DI.RAD_ITS ---
Exam(s) XR HIP RT COMPLETE AP PELVIS EXAM: XR HIP RT COMPLETE AP PELVIS CLINICAL HISTORY: pain in hip. TECHNIQUE: 2D digital imaging was performed. FINDINGS: 3 views No evidence of pelvic nor hip fracture. No hip joint space narrowing. Minimal if any significant change compared to December 2015. IMPRESSION: No significant radiographic change compared to 2015. DATA REPOSITORY: RADIATION DOSE DELIVERED:
== END 2022-02-02 08:56 | disposition home or self-care (01) ==
LOC: DIORS 08:55
PROVIDERS: PCP Family Medicine; Referring Provider Family Medicine; Visit Provider Physician Assistant Surgical
DX: M25.551 Pain in right hip (principal)
CPT/HCPCS: 73502

== ENCOUNTER 2022-02-11 02:04 | Outpatient (CLI) | payer BC, SELFPAY ==
--- NOTE | 2022-02-11 08:15 | DI.RAD_ITS ---
Exam(s) RF JOINT INJECTION FLUORO GUID EXAM: RF JOINT INJECTION FLUORO GUID CLINICAL HISTORY: R HIP INJ UNDER FLUORO,ILIOTIBIAL BAND SYNDROME,FEMORAL ACETABULAR TECHNIQUE: 2D and realtime digital imaging was performed. COMPARISON: No exams were available for comparison FINDINGS: Fluoroscopy was utilized by Dr. Heard during right hip injection. Hard copy shows intra-articular injection. IMPRESSION: RADIATION DOSE DELIVERED: ghazala Donnelly=0.52 mGy Total DLP
[2022-02-11] MEDS: Omnipaque 300 MG/ML 10 ML BTL IJ (14:54)
[2022-02-11] MEDS: methylPREDNISolone ACETATE 80 MG/ML VIAL IM (14:54)
[2022-02-11] MEDS: Bupivacaine 0.5% Pres-Free 10 ML VIAL 5 ML IJ (14:55)
--- NOTE | 2022-02-11 21:18 | W.PROCNOTE ---
Date of service: 02/11/22 Time of Service: 14:40 Procedure Note Date of procedure: 02/11/22 Procedure: Right Hip Injection with Fluoroscopic Guidance Surgeon/Proceduralist/Physician: Pritesh Heard Procedure Diagnosis: Right Leg Pain Procedure Indications: Sherman has had persistent pain, albeit intermittent pain, of the RIGHT thigh. Noninvasive measures have been tried and the diagnosis is unclear yet he does have radiographic evidence of hip impingement. To serve as both diagnostic and therapeutic, an injection under fluoroscopy was recommended. I had discussed the risks of the procedure and the patient elected to proceed. Procedure Description: Sherman was greeted in the flouroscopy room. The correct side was identified and the consent was reviewed with the patient and signed. The patient was then placed in the supine position on the fluoroscopy table. The RIGHT hip was then prepped with Chloraprep. The anterolateral injection starting point was identiifed by bony landmarks and fluoroscopy. The skin and soft tissue in the tract of the injection was anesthetized with 1% Lidocaine. A spinal needle was then inserted deep into the hip joint at the level of the lateral femoral neck under fluoroscopic guidance. A small amount of Omnipaque solution was injected to confirm intraarticular placement. Once confirmed, the hip was injected with 5cc of 0.5% Bupivicaine and 80mg of Depo-Medrol. A bandaid was placed on the injection site. The patient tolerated the procedure well.
== END 2022-02-11 02:24 ==
LOC: DI 02:10
PROVIDERS: PCP Family Medicine; Visit Provider Student in an Organized Health Care Education/Training Program
DX: M25.851 Other specified joint disorders, right hip (principal); M76.31 Iliotibial band syndrome, right leg
CPT/HCPCS: 20610; 77002; J1040

== ENCOUNTER 2022-03-17 15:41 | Outpatient (REF) | payer BC, SELFPAY ==
[2022-03-17 15:12] LABS: HCT 46.2 % (40.0-50.0); HGB 15.8 g/dL (13.5-17.5); MCH 31.6 pg (27.0-33.0); MCHC 34.2 % (32.0-36.0); MCV 92 fL (80-95); Platelet Count 233 10^3/uL (130-400); RDW 12.3 % (11.8-14.1); RDW-SD 41.9 fL
[2022-03-17 16:12] LABS: ALT 42 U/L (16-63); AST 28 U/L (15-37); Alkaline Phosphatase 86 U/L (46-116); Anion Gap 10.7 mmol/L (3-11); BUN 22 mg/dL (7-18); Bilirubin, Total 0.5 mg/dL (0.2-1.0); CO2 27.3 mmol/L (21.0-32.0); CREATININE 1.1 mg/dL (0.70-1.30); Calcium 9.5 mg/dL (8.5-10.1); Chloride 103 mmol/L (98-107); Estimated GFR 75.43 (mL/min/1.73m2); Glucose 165 mg/dL (74-106); Potassium 4.2 mmol/L (3.5-5.1); Sodium 141 mmol/L (136-145); Total Protein 7.6 g/dL (6.4-8.2)
[2022-03-17 16:30] LABS: Ferritin 1800 ng/mL (26-388)
[2022-03-17 16:49] LABS: Iron 117 ug/dL (65-175); Total Iron Binding Capacity 268 ug/dL (250-450); Transferrin Sat 44 % (20-55)
== END 2022-03-17 15:42 | disposition home or self-care (01) ==
LOC: NCHCN 15:41
PROVIDERS: PCP Family Medicine; Visit Provider Family Medicine
DX: K76.0 Fatty (change of) liver, not elsewhere classified (principal); R78.89 Finding of other specified substances, not normally found in blood; F10.99 Alcohol use, unspecified with unspecified alcohol-induced disorder
CPT/HCPCS: 80053; 85027; 82728; 83540; 83550

== ENCOUNTER 2023-03-28 14:00 | Outpatient (REF) | payer BC, SELFPAY ==
[2023-03-28 17:00] LABS: Calculated LDL 118 mg/dL (<100); Cholesterol 201 mg/dL (<200); HDL Cholesterol 42 mg/dL (40-60); Triglyceride 205 mg/dL (<150)
[2023-03-29 18:21] LABS: PSA, Screening 2.2 ng/mL (<=4.5)
[2023-03-29 18:58] LABS: HIV-1/2 Ag & Ab Screen Negative (Negative)
== END 2023-03-28 14:01 | disposition home or self-care (01) ==
LOC: NCHCN 14:00
PROVIDERS: PCP Family Medicine; Visit Provider Family Medicine
DX: Z00.00 Encounter for general adult medical examination without abnormal findings (principal); Z13.220 Encounter for screening for lipoid disorders; Z13.1 Encounter for screening for diabetes mellitus; Z11.4 Encounter for screening for human immunodeficiency virus [HIV]; Z12.5 Encounter for screening for malignant neoplasm of prostate
CPT/HCPCS: 80061; 84153; 87389; 83036

== ENCOUNTER 2024-05-15 17:14 | Outpatient (REF) | payer MEDICARE, SELFPAY ==
[2024-05-15 15:27] LABS: Abs Immature Grans 0.03 10^3/uL (0.0-0.06); Absolute Basophil Count 0.06 10^3/uL (0.0-0.2); Absolute Lymphocyte Count 2.42 10^3/uL (1.2-3.4); Absolute Monocyte Count 0.75 10^3/uL (0.1-0.8); Absolute Neutrophil Count 4.27 10^3/uL (1.2-6.7); Basophils % 0.8 %; Eosinophils % 3.8 %; HCT 44.7 % (40.0-50.0); HGB 15.6 g/dL (13.5-17.5); Immature Grans % 0.4 %; Lymphocytes % 30.9 %; MCH 32.2 pg (27.0-33.0); MCHC 34.9 % (32.0-36.0); MCV 92 fL (80-95); MPV 10.8 fL (8.0-11.0); Monocytes % 9.6 %; Neutrophils % 54.5 %; Platelet Count 186 10^3/uL (130-400); RBC 4.84 10^6/uL (4.36-5.78); RDW 12.2 % (11.8-14.1); WBC 7.83 10^3/uL (4.4-10.8)
[2024-05-15 16:11] LABS: ALT 37 U/L (16-63); AST 29 U/L (15-37); Alkaline Phosphatase 76 U/L (46-116); Anion Gap 9.6 mmol/L (3-11); BUN 19 mg/dL (7-18); Bilirubin, Total 0.69 mg/dL (0.2-1.0); CO2 26.4 mmol/L (21.0-32.0); CREATININE 1.1 mg/dL (0.70-1.30); Calcium 9.4 mg/dL (8.5-10.1); Chloride 106 mmol/L (98-107); Estimated GFR 74.04 (mL/min/1.73m2); Glucose 125 mg/dL (74-106); Potassium 4.1 mmol/L (3.5-5.1); Sodium 142 mmol/L (136-145); Total Protein 7.1 g/dL (6.4-8.2)
[2024-05-15 16:38] LABS: COMMENT (LAB VIEW ONLY) 95.36 mg/dL; Microalb ug/mg Crea 19.6 ug/mg Cr
[2024-05-15 22:37] LABS: PSA, Screening 0.9 ng/mL (<=4.5)
== END 2024-05-15 17:15 | disposition home or self-care (01) ==
LOC: NCHCN 17:14
PROVIDERS: PCP Family Medicine; Visit Provider Student in an Organized Health Care Education/Training Program
DX: R73.03 Prediabetes (principal); Z12.5 Encounter for screening for malignant neoplasm of prostate; I10 Essential (primary) hypertension
CPT/HCPCS: 80053; 84153; 82043; 82570; 85025

== ENCOUNTER 2024-07-25 02:22 | Outpatient (CLI) | payer MEDICARE, SELFPAY ==
[2024-07-25 12:49] LABS: Iron 96 ug/dL (65-175); Total Iron Binding Capacity 261 ug/dL (250-450); Transferrin Sat 37 % (20-55)
== END 2024-07-25 02:23 | disposition home or self-care (01) ==
PROVIDERS: PCP Family Medicine; Visit Provider Student in an Organized Health Care Education/Training Program
DX: R79.89 Other specified abnormal findings of blood chemistry (principal)
CPT/HCPCS: 36415; 83540; 83550

== ENCOUNTER 2025-02-12 10:39 | Outpatient (CLI) | payer MEDICARE, SELFPAY ==
[2025-02-12 11:03] LABS: ALT 34 U/L (16-63); AST 25 U/L (15-37); Albumin 4.0 g/dL (3.4-5.0); Alkaline Phosphatase 73 U/L (46-116); Anion Gap 5.2 mmol/L (3-11); BUN 19 mg/dL (7-18); Bilirubin, Total 0.7 mg/dL (0.2-1.0); CO2 30.8 mmol/L (21.0-32.0); Calcium 9.1 mg/dL (8.5-10.1); Chloride 103 mmol/L (98-107); Cholesterol 162 mg/dL (<200); Glucose 132 mg/dL (74-106); HDL Cholesterol 46 mg/dL (>or=40); Potassium 4.5 mmol/L (3.5-5.1); Sodium 139 mmol/L (136-145); Total Protein 7.8 g/dL (6.4-8.2)
== END 2025-02-12 10:40 | disposition home or self-care (01) ==
LOC: LBO 10:40
PROVIDERS: PCP Family Medicine; Visit Provider Student in an Organized Health Care Education/Training Program
DX: E78.5 Hyperlipidemia, unspecified (principal); I10 Essential (primary) hypertension
CPT/HCPCS: 36415; 80053; 80061; 82728